=== PATIENT | male | born 1970 | race Caucasian/White ===

== ENCOUNTER 2021-03-07 21:55 | Emergency (ER) | payer BC ==
[~2021-03-07] VITALS: Ht 162.6 cm; Wt 49.9 kg
[2021-03-07 22:23] LABS: ABSOLUTE BASOPHILS 0.1 thou/uL (0.0-0.2); ABSOLUTE EOSINOPHILS 0.1 thou/uL (0.0-0.7); ABSOLUTE MONOCYTES 0.6 thou/uL (0.0-1.2); ABSOLUTE NEUTROPHILS 2.8 thou/uL (1.6-8.1); BASOPHILS 0.8 %; EOSINOPHILS 1.4 %; HEMATOCRIT 45.9 % (42.0-52.0); HEMOGLOBIN 16.3 gm/dL (14.0-18.0); LYMPHOCYTES 45.4 %; MCH 31.5 pg (26.0-34.0); MCHC 35.6 g/dL (28.0-37.0); MCV 88.4 fL (80.0-100.0); MONOCYTES 9.5 %; MPV 8.2 fl. (7.2-11.1); NUCLEATED RBCS 0 /100WBC; PLATELET COUNT* 167 thou/uL (150-400); POLYS 42.9 %; RBC 5.19 mil/uL (4.50-6.00); RDW-CV 12.5 % (10.5-14.5); WBC 6.6 thou/uL (4.0-11.0)
[2021-03-07 22:30] LABS: CALCIUM 8.9 mg/dL (8.5-10.1); POTASSIUM 3.4 mmol/L (3.5-5.1)
[2021-03-07] MEDS ORDERED: ZOFRAN ODT4 MG PO (23:44)
[2021-03-08 00:06] VITALS: BP 122/75
== END 2021-03-08 00:06 | disposition home or self-care (01) ==
LOC: M.ERS 21:55
PROVIDERS: Emergency Medicine
DX: U07.1 COVID-19 (principal); R11.10 Vomiting, unspecified